=== PATIENT | female | born 1980 | race Hispanic/Latino ===

== ENCOUNTER 2023-12-30 15:08 | Emergency (ER) | payer OTHER ==
--- OUTSIDE RECORDS SUMMARY | 2023-12-30 15:11 | XMS REPORT | Continuity of Care Document ---
Author Name Unknown Address [address] [facility]. 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 9 [id number] 2023 00:00:00 Allergies, Adverse Reactions, Alerts Allergy Name Allergy Type Status Severity Reaction(s) Onset Date Inactive Date Treating Clinician Comments Source Cefadrox il Propensi ty to adverse reaction s Active Rash 10-30 00:00: 00 Kristen Carr - Externa l Clindamy lexie Propensi ty to adverse reaction s Active Rash 10-30 00:00: 00 Kristen Teea l Dexameth asone Propensi ty to adverse reaction s Active Atopic Dermatitis 10-30 00:00: 00 Burning sensation on skin and irregular heart beat Kristen Amin Externa l Oxacilli n Propensi ty to adverse reaction s Active Rash 10-30 00:00: 00 Kristen Teea denny Social History Social Habit Start Date Stop Date Quantity Comments Source ASSERTION Possible Kristen Carr - External Sexual orientation Hernik Carr - External Tobacco use and exposure 2023-09-26 00:00:00 2023-09-26 00:00:00 Smokeless tobacco non-user Kristen Carr - External Alcoholic beverage intake 2023-09-26 00:00:00 2023-09-26 00:00:00 Ex-drinker (finding) Kristen Carr - External History of Social function 2023-09-26 00:00:00 2023-09-26 00:00:00 Kristen Carr - External Sex 2023-08-14 18:39:06 2023-08-14 18:39:06 Female (finding) Kristennichol Carr - External Sex [birth year] at 1980 00:00:00 1980 00:00:00 Kristen Carr - External Smoking Status Start Date Stop Date Source Never smoked tobacco Kristen Joshuaold - External Vital Signs Vital Name Observation Time Observation Value Comments S ource Systolic blood pressure 2023-09-26 13:15:00 108 mm[Hg] Kristen sukho ld - External Diastolic blood pressure 2023-09-26 13:15:00 74 mm[Hg] Kristen sukho ld - External Heart rate 2023-09-26 13:15:00 74 /min Taylor Carr - External Body temperature 2023-09-26 13:15:00 37.06 Anabel Kristen Carr - External Body weight 2023-09-26 13:15:00 77.565 kg Natty Carr - External Oxygen saturation in Arterial blood by Pulse oximetry 2023-09-26 13:15:00 98 /min Kristen Leon ld - External Encounters Start Date/Time End Date/Time Encounter Type Admission Type Attending [facility] Care Department Encounter ID Source 2023-11-29 00:00:00 2023-11-29 00:00:00 Outpatient KRISTEN PETERSON [id number] Kristen matthieu 2023-11-28 11:00:00 2023-11-28 11:00:00 Outpatient PEBBLES MALAVE [id number] Kristen Carr 2023-11-28 09:30:00 2023-11-28 09:30:00 Outpatient KRISTEN PETERSON [id number] Kristen Carr 2023-11-21 11:15:00 2023-11-21 11:15:00 Outpatient KRISTEN PETERSON [id number] Kristen Carr 2023-11-14 10:30:00 2023-11-14 10:30:00 Outpatient KRISTEN PETERSON [id number] Kristen [facility] 2023-10-31 09:15:00 2023-10-31 09:15:00 Outpatient [id number] KRISTEN PETERSON [id number] Kristen [facility] 2023-10-31 08:00:00 2023-10-31 08:00:00 Outpatient PEBBLES MALAVE [id number] [facility] 2023-10-21 00:00:00 2023-10-21 00:00:00 Outpatient ANANDA PEBBLES PETERSON [id number] [facility] 2023-09-26 08:55:00 2023-09-26 08:55:00 Outpatient LAB90 KRISTEN PETERSON [id number] Kristen [facility] 2023-09-26 08:00:00 2023-09-26 08:00:00 Outpatient JEFF KULKARNI [id number] [facility]
--- NOTE | 2023-12-30 16:41 | RAD REPORT ---
EXAM: Right upper quadrant ultrasound. CLINICAL HISTORY: Abdominal pain COMPARISON: None FINDINGS: A gallstone is not seen. Gallbladder wall not thickened. Biliary tree normal caliber IMPRESSION: No significant abnormalities displayed
[2023-12-30 17:19] LABS: Specific Gravity 1.023 (1.005-1.030)
[2023-12-30 17:22] LABS: Specific Gravity 1.023 (1.005-1.030); Sqamous Epithelial <5 /HPF (None Seen); Urine Bacteria None Seen /HPF (<20); Urine Bilirubin NEGATIVE (Negative); Urine Blood 1+ (Negative); Urine Clarity Turbid (Clear); Urine Color Light-Yellow (Yellow); Urine Culture Reflex Order NOT NEEDED; Urine Glucose NEGATIVE (Negative); Urine Ketones TRACE (Negative); Urine Microscopic Reflex YN ORDER UMIC; Urine Mucus Slight /HPF (None Seen); Urine Nitrite NEGATIVE (Negative); Urine Protein NEGATIVE (Negative); Urine RBC <5 /HPF (None Seen); Urine Urobilinogen Normal (Normal); Urine WBC <5 /HPF (<5); Urine pH 6.5 (5.0-7.0)
[2023-12-30 17:41] LABS: SARS-CoV-2 Antigen CONTROL BLUE LINE VIS/BG OK; SARS-CoV-2 Antigen Rapid Res Negative (Negative)
[2023-12-30] MEDS ORDERED: FAMOTIDINE 20 MG/2 ML VIAL IV ONE (17:54)
[2023-12-30] MEDS ORDERED: NA CHLORIDE 0.9% 1,000 ML ONE (17:54)
[2023-12-30] MEDS ORDERED: ONDANSETRON 4 MG/2 ML VIAL ONE (17:54)
[2023-12-30 19:57] LABS: Absolute Basophils 0.1 K/uL (0-0.5); Absolute Eosinophils 0.1 K/uL (0-0.5); Absolute Lymphocytes (CBC) 1.9 K/uL (0.7-4.9); Absolute Monocytes 0.7 K/uL (0.1-1.3); Absolute Neutrophil 5.4 K/uL (1.8-8.0); Basophils % 1.5 % (0-1.3); Eosinophils % 1.2 % (0-4.4); Hematocrit 36.1 % (36.0-45.0); Hemoglobin 12.1 g/dL (12.0-15.0); Lymphocytes % 22.8 % (15.3-44.8); MCH 28.4 pg (27.0-35.0); MCHC 33.5 g/dL (32.0-36.0); MCV 84.8 fL (80-100); MPV 9.2 fL (7.6-11.3); Monocytes % 8.3 % (3.3-12.3); Neutrophils % 66.2 % (41.7-73.7); Nucleated Red Blood Cells % 0.1 % (0-0); Platelets 208 thou/uL (152-406); RBC Red Blood Cell Count 4.26 M/uL (3.86-4.86); Red Cell Distribution Width 13.8 % (12.1-15.2)
[2023-12-30 20:12] LABS: Albumin 2.8 g/dL (3.4-5.0); Albumin/Globulin Ratio 0.9 (1.1-1.8); Anion Gap 8.7 mEq/L (5.0-15.0); Bilirubin Total 0.2 mg/dL (0.2-1.0); Globulin 3.1 g/dL (2.3-3.5); Potassium 3.7 mEq/L (3.5-5.1); Protein, Total 5.9 g/dL (6.4-8.2)
--- NOTE | 2023-12-30 21:23 | RAD REPORT ---
Procedure: Chest Single View HISTORY: Abdominal pain COMPARISON: none FINDINGS: The lungs appear clear of acute infiltrate. No significant pleural effusion noted. The heart is normal size. IMPRESSION: No acute abnormality is displayed.
--- NOTE | 2023-12-30 21:34 | RAD REPORT ---
EXAMINATION: CT ABDOMEN AND PELVIS WITH CONTRAST CLINICAL INDICATION: Abdominal pain TECHNIQUE: CT abdomen and pelvis was performed, after the administration of 100 cc Isovue-300.. Sagit kanika and coronal reconstructions were obtained. One or more of the following dose reduction techniques were used: Automated exposure control, adjustment of the mA and kV according to patient si ze, and iterative reconstruction. Unless otherwise specified, incidental findings do not require dedicated imaging follow-up. [id number]. Oral contrast was not given which limits evaluation of bowel and appendix. COMPARISON: none FINDINGS: Liver, spleen, pancreas, adrenals and kidneys appear unremarkable No evidence of diverticulitis. Normal appendix. No adnexal mass. Small umbilical hernia : IMPRESSION: No acute abnormality displayed
--- NOTE | 2023-12-30 21:48 | ER ---
Nurse's Notes [facility] Name: Ela Garcia Age: 43 yrs Sex: Female : 1980 Arrival Date: 12/30/2023 Time: 15:08 Bed 20 Private MD: Diagnosis: Nausea with vomiting, unspecified;Umbilical hernia without obstruction or gangrene Presentation: 12/29 15:34 Chief complaint: Patient states: Epigastric pain, nausea, vomiting and diarrhea onset cm10 Saturday. Pt also reports subject fever. Coronavirus screen: Client denies travel out of the [place] in the last 14 days. Ebola Screen: Patient denies travel to an Ebola-affected area in the 21 days before illness onset. No symptoms or risks identified at this time. Initial Sepsis Screen: Does the patient meet any 2 criteria? No. Patient's initial sepsis screen is negative. Does the patient have a suspected source of infection? No. Patient's initial sepsis screen is negative. Risk Assessment: Do you want to hurt yourself or someone else? Patient reports no desire to harm self or others. Onset of symptoms was December 26, 2023. 15:34 Method Of Arrival: Ambulatory cm10 15:34 Acuity: FREDERIC 3 cm10 Triage Assessment: 15:38 General: Appears in no apparent distress. comfortable, Behavior is calm, cooperative. cm10 Neuro: No deficits noted. Level of Consciousness is awake, alert, obeys commands, Oriented to person, place, time, situation, Appropriate for age. Respiratory: No deficits noted. Airway is patent Respiratory effort is even, unlabored, Respiratory pattern is regular, symmetrical. 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 - Infectious Disease History:: Denies. - Social history:: Smoking status: Patient denies any tobacco usage or history of. Screenin:55 [facility] ED Fall Risk Assessment (Adult) History of falling in the last 3 months, db including since admission No falls in past 3 months (0 pts) Confusion or Disorientation No (0 pts) Intoxicated or Sedated No (0 pts) Impaired Gait No (0 pts) Mobility Assist Device Used No (0 pt) Altered Elimination No (0 pt) Score/Fall Risk Level 0 - 2 = Low Risk Oriented to surroundings, Maintained a safe environment. Abuse screen: Denies threats or abuse. Denies injuries from another. Nutritional screening: No deficits noted. Tuberculosis screening: No symptoms or risk factors identified. Assessment: 17:55 Reassessment: Patient appears in no apparent distress at this time. Patient and/or db family updated on plan of care and expected duration. Pain level reassessed. Patient is alert, oriented x 3, equal unlabored respirations, skin warm/dry/pink. General: Appears in no apparent distress. comfortable, Behavior is calm, cooperative. Pain: Denies pain. Neuro: Level of Consciousness is awake, alert, obeys commands, Oriented to person, place, time, situation. Respiratory: Airway is patent Respiratory effort is even, unlabored, Respiratory pattern is regular, symmetrical. GI: Abdomen is flat, non-distended, Reports nausea. 18:41 Reassessment: Patient appears in no apparent distress at this time. Patient and/or db family updated on plan of care and expected duration. Pain level reassessed. Patient is alert, oriented x 3, equal unlabored respirations, skin warm/dry/pink. 18:55 Reassessment: INSIDE LAB, PHLEBOTOMY CALLED FOR PATIENT RECOLLECT OF BLOOD. DIFFICULTY db OBTAINING BLOOD SPECIMEN. 19:42 Reassessment: Patient appears in no apparent distress at this time. Patient and/or jb4 family updated on plan of care and expected duration. Pain level reassessed. Patient is alert, oriented x 3, equal unlabored respirations, skin warm/dry/pink. Phlebotomy at bedside attempting to recollect lab specimen. 20:53 Reassessment: Patient appears in no apparent distress at this time. Patient and/or jb4 family updated on plan of care and expected duration. Pain level reassessed. Patient is alert, oriented x 3, equal unlabored respirations, skin warm/dry/pink. 22:15 Reassessment: Patient appears in no apparent distress at this time. Patient and/or jb4 family updated on plan of care and expected duration. Pain level reassessed. Patient is alert, oriented x 3, equal unlabored respirations, skin warm/dry/pink. Vital Signs: 15:34 BP 98 / 69; Pulse 75; Resp 16; Temp 98.7(O); Pulse Ox 100% on R/A; Weight 77.56 kg (R); cm10 Height 5 ft. 6 in. ; Pain 6/10; 17:56 BP 99 / 60; Pulse 60; Resp 18; Pulse Ox 100% on R/A; db 18:30 BP 101 / 66; Pulse 65; Resp 18; Pulse Ox 100% on R/A; db 19:00 BP 107 / 72; Pulse 63; Resp 18; Pulse Ox 100% on R/A; db 20:53 BP 111 / 66; Pulse 60; Resp 16; Pulse Ox 100% on R/A; jb4 22:15 BP 105 / 80; Pulse 58; Resp 16; Pulse Ox 100% on R/A; jb4 15:34 Body Mass Index 27.60 (77.56 kg, 167.64 cm) cm10 15:34 Pain Scale: Adult cm10 ED Course: 15:10 Patient arrived in ED. mr 15:17 Greg Perez PA is PHCP. cp 15:17 Dashawn Corbin DO is Attending Physician. cp 15:35 Triage completed. cm10 15:38 Arm band placed on right wrist. Patient placed in waiting room. cm10 16:15 US Abdomen Limited: gallbladder In Process Unspecified. EDMS 17:38 Inserted saline lock: 22 gauge in left wrist, using aseptic technique. Flushed with 10 cc6 mL NS. 17:46 Madalyn Alvarado, RN is Primary Nurse. db 17:55 Patient has correct armband on for positive identification. Bed in low position. Call db light in reach. Side rails up X 1. Pulse ox on. NIBP on. Warm blanket given. Pillow given. 18:04 Initial lab(s) drawn, by me, sent to lab. Inserted saline lock: 24 gauge in right hand, magnolia using aseptic technique. Blood collected. Flushed with 10 mL NS. 18:04 CBC with Diff Sent. zm 18:04 CMP Sent. zm 18:04 Lipase Sent. zm 18:43 Provided Education on:. db 18:45 Patient admitted, IV remains in place. db 18:45 No provider procedures requiring assistance completed. db 20:16 PHCP role handed off by Greg Perez PA dr5 20:16 Francisco Adame FNP-C is PHCP. dr5 20:53 Sameer Escobedo, RN is Primary Nurse. jb4 21:13 XRAY Chest (1 view) In Process Unspecified. EDMS 21:14 CT Abd/Pelvis - IV Contrast Only In Process Unspecified. EDMS Administered Medications: 17:55 Drug: Famotidine IVP 20 mg IVP once; dilute with 10 mL 0.9% NaCl; give over 2 minutes db Route: IVP; Site: right wrist; 17:55 Drug: Ondansetron IVP 4 mg IVP once; over 2 minutes Route: IVP; Site: right wrist; db 17:55 Drug: NS 0.9% IV 1000 ml IV at 1 bolus Per protocol; to be given as a bolus over 60 db minutes Route: IV; Rate: 1 bolus; Site: right wrist; Medication: 18:43 VIS not applicable for this client. db Outcome: 18:45 Admitted to ER Hold. [facility]. db 18:45 Condition: stable 18:45 Instructed on the need for admit, 21:47 Discharge ordered by MD. dr5 22:16 Discharged to home ambulatory, with family, james 22:16 Condition: stable 22:16 Discharge instructions given to patient, Instructed on discharge instructions, follow up and referral plans. Demonstrated understanding of instructions, follow-up care, medications, Prescriptions given X 1, 22:17 Patient left the ED. jb4 Signatures: Dispatcher [employer] EDNM Aury Maldonado, Reg Reg mr Greg Perez PA PA cp Sameer Escobedo, RN RN jb4 Kassie Neal Danielle, RN RN db Martinez, Clarissa, RN RN cm10 Susan Cruz cc6 Francisco Adame FNP-C FNP-Cdr5 Corrections: (The following items were deleted from the chart) 15:38 15:34 Chief complaint: Patient states: Epigastric pain, nausea, vomiting and diarrhea cm10 onset Saturday. cm10
--- NOTE | 2023-12-30 21:48 | EDPHYS ---
Physician Documentation [facility] Name: Ela Garcia Age: 43 yrs Sex: Female : 1980 Arrival Date: 12/30/2023 Time: 15:08 Bed 20 Private MD: ED Physician Dashawn Corbin HPI: 12/29 15:50 This 43 yrs old Female presents to ER via Ambulatory with complaints of Fever, cp Vomiting. 15:50 The patient reports fever, not measured (subjective). cp 15:50 Onset: The symptoms/episode began/occurred 3 day(s) ago. Associated signs and symptoms: cp Pertinent positives: abdominal pain, diarrhea, vomiting. 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 - Infectious Disease History:: Denies. - Social history:: Smoking status: Patient denies any tobacco usage or history of. ROS: 15:55 Constitutional: Positive for poor PO intake, Negative for body aches, chills, fever, cp 15:55 Eyes: Negative for injury, pain, redness, and discharge, cp 15:55 ENT: Negative for drainage from ear(s), ear pain, sore throat, difficulty swallowing, difficulty handling secretions, 15:55 Cardiovascular: Negative for chest pain, edema, palpitations, 15:55 Respiratory: Negative for cough, shortness of breath, wheezing, 15:55 Abdomen/GI: Positive for abdominal pain, nausea and vomiting, diarrhea, anorexia, of the epigastric area, Negative for constipation, hematemesis, black/tarry stool, rectal bleeding, 15:55 Back: Negative for pain at rest, pain with movement, 15:55 : Negative for urinary symptoms, 15:55 Neuro: Negative for altered mental status, dizziness, headache, weakness, 15:55 All other systems are negative, Exam: 16:00 Constitutional: The patient appears in no acute distress, alert, awake, cp non-diaphoretic, non-toxic, well developed, well nourished, uncomfortable, 16:00 Head/Face: Normocephalic, atraumatic. cp 16:00 Eyes: Periorbital structures: appear normal, Conjunctiva: normal, no exudate, no injection, Sclera: no appreciated abnormality, Lids and lashes: appear normal, bilaterally, 16:00 ENT: External ear(s): are unremarkable, Nose: is normal, Mouth: Lips: moist, Oral mucosa: pink and intact, moist, Posterior pharynx: Airway: no evidence of obstruction, patent, 16:00 Chest/axilla: Inspection: normal, 16:00 Cardiovascular: Rate: normal, Rhythm: regular, Edema: is not appreciated, JVD: is not appreciated, 16:00 Respiratory: the patient does not display signs of respiratory distress, Respirations: normal, no use of accessory muscles, no retractions, labored breathing, is not present, Breath sounds: are clear throughout, no decreased breath sounds, no stridor, no wheezing, 16:00 Abdomen/GI: Inspection: abdomen appears normal, Bowel sounds: active, all quadrants, Palpation: soft, in all quadrants, moderate abdominal tenderness, in the epigastric area, rebound tenderness, is not appreciated, involuntary guarding, is not appreciated, 16:00 Back: pain, is absent, ROM is normal, Vital Signs: 15:34 BP 98 / 69; Pulse 75; Resp 16; Temp 98.7(O); Pulse Ox 100% on R/A; Weight 77.56 kg (R); cm10 Height 5 ft. 6 in. ; Pain 6/10; 17:56 BP 99 / 60; Pulse 60; Resp 18; Pulse Ox 100% on R/A; db 18:30 BP 101 / 66; Pulse 65; Resp 18; Pulse Ox 100% on R/A; db 19:00 BP 107 / 72; Pulse 63; Resp 18; Pulse Ox 100% on R/A; db 20:53 BP 111 / 66; Pulse 60; Resp 16; Pulse Ox 100% on R/A; jb4 22:15 BP 105 / 80; Pulse 58; Resp 16; Pulse Ox 100% on R/A; jb4 15:34 Body Mass Index 27.60 (77.56 kg, 167.64 cm) cm10 15:34 Pain Scale: Adult cm10 MDM: 15:42 Medical Screening Exam initiated cp 20:18 Transition of care: Care assumed from Greg WALTER. dr5 21:48 Differential diagnosis: viral Infection, bacterial infection, Appendicitis, dr5 Cholecystitis. Data reviewed: vital signs, nurses notes. Consideration of Admission/Observation Escalation of care including admission/observation considered. Considered admission if appendicitis, cholecystitis, or abdominal etiology on CT.. I considered the following discharge prescriptions or medication management in the emergency department Medications were administered in the Emergency Department. See MAR. Care significantly affected by the following Social Determinants of Health: Poor access to healthcare and/or lack of insurance, Poor access to transportation. Counseling: I had a detailed discussion with the patient and/or guardian regarding the historical points, exam findings, and any diagnostic results supporting the discharge/admit diagnosis, the presence of at least one elevated blood pressure reading (>120/80) during this emergency department visit, lab results, radiology results, the need for outpatient follow up, for definitive care, a family practitioner, to return to the emergency department if symptoms worsen or persist or if there are any questions or concerns that arise at home. Medication response: Zofran relieved the patient's nausea. Response to treatment: the patient's symptoms have resolved after treatment, patient is well hydrated. ED course: Patient's pain has resolved. Patient p.o. challenge passed. Printed lab results and diagnostics and handed to patient. Will prescribe Zofran to help with nausea. Recommended follow-up with PCP this week.. 12/29 15:43 Order name: CBC with Diff; Complete Time: 20:00 cp 12/29 20:00 Interpretation: Reviewed. cp 12/29 15:43 Order name: CMP; Complete Time: 20:16 cp 12/29 15:43 Order name: Lipase; Complete Time: 20:16 cp 12/29 15:43 Order name: Test, Urine; Complete Time: 19:03 cp 12/29 15:43 Order name: Urinalysis w/ reflexes; Complete Time: 19:03 cp 12/29 19:03 Interpretation: Normal except: [facility] Turbid; UKET TRACE; UBLD 1+. cp 12/29 15:46 Order name: SARS RAPID; Complete Time: 19:03 cp 12/29 15:46 Order name: Influenza Screen (a \T\ B); Complete Time: 19:03 cp 12/29 15:46 Order name: US Abdomen Limited: gallbladder; Complete Time: 17:19 cp 12/29 17:19 Interpretation: Report reviewed. 12/29 17:20 Order name: CT Abd/Pelvis - IV Contrast Only; Complete Time: 21:34 cp 12/29 20:08 Order name: XRAY Chest (1 view); Complete Time: 21:33 cp 12/29 15:43 Order name: IV Saline Lock; Complete Time: 17:38 cp 12/29 15:43 Order name: Labs collected and sent; Complete Time: 18:04 cp 12/29 15:46 Order name: NPO; Complete Time: 18:05 12/29 18:19 Order name: Labs - recollect needed: recollect green and lavender top; Complete Time: bd 19:50 Administered Medications: 17:55 Drug: Famotidine IVP 20 mg IVP once; dilute with 10 mL 0.9% NaCl; give over 2 minutes db Route: IVP; Site: right wrist; 17:55 Drug: Ondansetron IVP 4 mg IVP once; over 2 minutes Route: IVP; Site: right wrist; db 17:55 Drug: NS 0.9% IV 1000 ml IV at 1 bolus Per protocol; to be given as a bolus over 60 db minutes Route: IV; Rate: 1 bolus; Site: right wrist; Disposition: 17:51 I was immediately available on-site in the Emergency Department for consultation in the ms3 care of the patient. Disposition Summary: 12/30/23 21:47 Discharge Ordered Notes: Location: Home dr5 Condition: Stable dr5 Diagnosis - Nausea with vomiting, unspecified dr5 - Umbilical hernia without obstruction or gangrene dr5 Followup: dr5 - With: Emergency Department - When: As needed - Reason: Worsening of condition Followup: dr5 - With: Private Physician - When: 1 - 2 days - Reason: Recheck today's complaints, Continuance of care, Re-evaluation by your physician Discharge Instructions: - Discharge Summary Sheet dr5 - Hernia, Adult dr5 Forms: - Work release form jb4 - Medication Reconciliation Form dr5 - Antibiotic Education dr5 - Patient Portal Instructions dr5 - Leadership Thank You Letter dr5 Prescriptions: - Zofran 4 mg Oral Tablet - take 1 tablet ORAL route every 12 hours As needed; 20 tablet; Refills: 0, dr5 Product Selection Permitted Signatures: Dispatcher [employer] EDMS Khalida Hines bd Greg Perez PA PA cp Sims, Marcus, DO ms3 Madalyn Alvarado, RN RN db Yuliana Neal RN RN cm10 Francisco Adame, DAMAGE PREVENTION COORDINATOR-C DAMAGE PREVENTION COORDINATOR-Cdr5 Corrections: (The following items were deleted from the chart) 15:47 15:47 SARS-COV-2 Antigen Rapid+I.LAB.BRZ ordered. EDMS EDMS 15:47 15:47 Influenza Screen (A \T\ B)+BA.LAB.BRZ ordered. EDMS EDMS 15:54 15:43 Abdomen Limited+US.RAD.BRZ ordered. EDMS EDMS
[2023-12-30 22:21] VITALS: TEMP 98.7; O2SAT 100
[2023-12-30 22:26] VITALS: BP 105/80
== END 2023-12-30 22:17 | disposition home or self-care (01) ==
LOC: ER 15:08
DX: K42.9 Umbilical hernia without obstruction or gangrene (principal); Z11.52 Encounter for screening for COVID-19
CPT/HCPCS: 85025; 81001; 36415; 81025; 83690; 80053; 87804 ×2; 74177; 71045; 76705; 87811; Q9967; J2405; J7030; 96374; 96375; 99285